=== PATIENT | female | born 1950 | race Caucasian/White ===

== ENCOUNTER 2017-04-27 09:35 | Day surgery (SDC) | payer MEDICARE, OTHER ==
[~2017-04-27] VITALS: Ht 160 cm; Wt 60.3 kg
[~2017-04-27 09:35] MED LIST: ADVAIR 250/5028 PUFF IN; AMITRIPTYLINE50 MG PO; ASPIRIN CHILDRE81 MG PO; ATENOLOL25 M1 PO; BACLOFEN 10MG T10 MG FT; CENTRUM PERFORM1 TAB PO; CHANTIX1 TAB PO; CILOSTAZOL100 MG PO; CRESTOR20 MG PO; FIBER CON625 MG OR; FUROSEMIDE40 MG PO; KLOR-CON 1010 MEQ PO; METFORMIN 500M500 MG FT; PANTOPRAZOLE40 M1 PO; PLAVIX75 MG PO; PRED FORTE 1% OP5 ML OP; PROVIGIL100 MG PO; QUALAQUIN324 MG PO; XANAX0.25 MG PO
--- NOTE | 2017-04-27 12:59 | Operative Note ---
Colonoscopy ([facility]) Procedure date: 04/27/17 Date of : 52 Procedure:Colonoscopy Colonoscopy with cold snare polypectomy Indications: Mrs. Yip is a 66-year-old female who is here for screening colonoscopy. She reports no abdominal pain, weight loss, change in her bowel habits or rectal bleeding. She reports no family history of colon cancer. Performing Provider: Danya Ramsey MD Referrring Provider: Helio Marino M.D. Sedation: MAC sedation Procedure: Prior to the procedure, a history and physical exam was performed, and patient medications and allergies were reviewed. The risks and benefits of the procedure and the sedation options and risks were discussed with the patient. All questions were answered and informed consent was obtained. Patient identification and proposed procedure were verified by the physician and the nurse. The patient was placed in a left lateral decubitus position. Throughout the procedure, the patient's blood pressure, pulse, and oxygen saturations were monitored continuously. Findings: On digital rectal examination there was normal rectal tone. There were no external hemorrhoids. The colonoscope was introduced through the anal canal to the rectum and advanced to the cecum. The ileocecal valve and appendiceal orifice were identified. The scope was advanced a short distance into the ileum which appeared grossly normal. The scope was then withdrawn into the colon. The cecum, ascending, transverse, descending and sigmoid were grossly normal. There were no mucosal abnormalities identified. Within the rectum there was a 6-7 mm polyp removed via cold snare polypectomy. Upon retroflexion within the rectum there were grade 1 internal hemorrhoids. Impressions: 1. Rectal polyp 2. Grade 1 internal hemorrhoids Recommendations: I will follow up the polyp pathology and recommend repeat colonoscopy again in 5 -10 years based upon the polyp histology. I would encourage fiber supplementation on a long-term daily maintenance basis. Complications: None EBL (ml): 0 at 2144
--- NOTE | 2017-04-27 13:16 | Anesthesia Record ---
Anesthesia Record Part I Total IV fluids: 400 EBL (ml): 0 Urine Output: 0 B/P: 134/76 % SaO2: 98 Pulse: 71 Resps: 16 Temp: 97.6 Patient is: Drowsy, Stable Stable to PACU at: 1300 (sds) at 1316
--- NOTE | 2017-04-27 13:17 | Anesthesia Record ---
Anesthesia Record Part II Discharge time: 1300 Destination: Same day surgery PACU nurse assessment review? Yes Patient is: Stable Anesthesia complications? No at 1316
[2017-04-27 17:32] VITALS: BP 140/69
== END 2017-04-27 13:35 | disposition home or self-care (01) ==
LOC: SDC 09:35
PROVIDERS: Internal Medicine Gastroenterology
PROC: 0DBP8ZX Excision of Rectum, Via Natural or Artificial Opening Endoscopic, Diagnostic (ICD-10-PCS; principal; 2017-04-27 10:30)
DX: Z12.11 Encounter for screening for malignant neoplasm of colon (principal); K62.1 Rectal polyp; K64.0 First degree hemorrhoids

== ENCOUNTER → 2017-09-18 | Outpatient (CLI) | payer MEDICARE, OTHER ==
--- NOTE | 2017-09-18 13:55 | CARDIOVASCULAR REPORT ---
"Cerebrovascular Exam Indications: 433.10 Occlusion/stenosis of carotid artery without cerebral infarction. IMPRESSIONS 1. The bilateral vertebral arteries are patent with normal antegrade flow. 2. Study suggests less than 20% stenosis involving the right internal carotid artery. 3. Study suggests 20-49% stenosis involving the left internal carotid artery. No change from the study of 08-Apr-2015. History: Risk factors: Hypertension. Hyperlipidemia. Carotid duplex study. Complete study and Doppler flow study including spectral analysis, color and nelson scale imaging. Height: Height: 160cm. Height: 63in. Weight: Weight: 59kg. Weight: 129.7lb. Body mass index: BMI: 23kg/m^2. Body surface area: BSA: 1.63m^2. Location: Vascular laboratory. Patient status: Outpatient. Tables: Arterial flow: + +--------+--------+ |Location |V sys |V ed | + +--------+--------+ |Right CCA - proximal|68.4cm/s|7.9cm/s | + +--------+--------+ |Right CCA - distal |73.9cm/s|14.9cm/s| + +--------+--------+ |Right ECA |95.9cm/s|--------| + +--------+--------+ |Right ICA - proximal|78.6cm/s|14.9cm/s| + +--------+--------+ |Right ICA - mid |94.3cm/s|17.3cm/s| + +--------+--------+ |Right ICA - distal |78.6cm/s|19.6cm/s| + +--------+--------+ |Right vertebral |70.7cm/s|--------| + +--------+--------+ |Left CCA - proximal |85.6cm/s|13.4cm/s| + +--------+--------+ |Left CCA - distal |48.7cm/s|13.4cm/s| + +--------+--------+ |Left ECA |105cm/s |--------| + +--------+--------+ |Left ICA - proximal |91.9cm/s|21.2cm/s| + +--------+--------+ |Left ICA - mid |88cm/s |18.1cm/s| + +--------+--------+ |Left ICA - distal |91.9cm/s|23.6cm/s| + +--------+--------+ |Left vertebral |58.9cm/s|--------| + +--------+--------+ Velocity ratios: + + + + + + | |Right, V sys|Right, V ed|Left, V sys|Left, V ed| + + + + + + |Max ICA/dist CCA|1.28 |1.32 |1.89 |1.76 | + + + + + + (Report amended ) Electronically signed by: Charles Arshad [id number]"
== END ==
LOC: RT 13:15
DX: I65.22 Occlusion and stenosis of left carotid artery (principal)